=== PATIENT | female | born 1955 | race African-American/Black ===

== ENCOUNTER → 2017-02-24 | Outpatient (CLI) | payer BC ==
[~2017-02-24] MED LIST: CHLORDIAZEPOXI1 EACH PO; INDERAL40 MG PO; LANTUS100 U/ML SUBQ; LEVOTHYROXINE100 MCG PO; LORAZEPAM1 MG PO; LORTAB 7.5-5001 TAB; NORVASC PO; PHENERGAN25 M1; VITAMIN D31000 UNIT PO
--- NOTE | ~2017-02-24 | ST ---
Unit #: [id number] #: [id number] Patient: LANA CAREY [id number] [address] [id number] MR#: [id number] NAME: LANA CAREY. : 1955 SEX: F STUDY DATE/TIME: 02/24/2017 UNIT: [facility] ROOM: STUDY DESCRIPTION: ECG portion of nuclear stress Attending Physician: Mir Fuentes M.D. Referring Physician: Mir Fuentes M.D. Primary Care Physician: Katia Frank CARDIOLOGY REPORT PROCEDURE PERFORMED ECG portion of nuclear stress test. INDICATION Chest discomfort. NOTE: Dictating both ECG portion of the nuclear stress test and the nuclear portion of the stress test in the same dictation. ECG PORTION Patient underwent Lexiscan protocol. The patient's resting heart rate is 71 beats per minute, which increased to 86 beats a minute representing 53% of the maximum age-predicted heart rate. Patient's resting blood pressure was 130/80 mmHg, which increased to 161/88 mmHg with Lexiscan infusion. Patient's resting ECG showed normal sinus rhythm with normal ST segments. Patient's ECG during Lexiscan infusion remains to be in sinus rhythm with preserved ST segments. There is no ventricular or supraventricular ectopy noted. There is no pause noted. CONCLUSION 1. Negative ECG portion of the Lexiscan study for ischemia. 2. Perfusion imaging dictated below. PERFUSION IMAGING Patient underwent nuclear stress test, received a resting dose of 9.7 mCi and a stress dose of 30.5 mCi. On gated imaging patient appears to have normal wall motion with a preserved ejection fraction. Patient's LVEF is 75%. On perfusion imaging, comparing rest and stress imaging, there appears to be no reversible perfusion defects. CONCLUSIONS 1. No obvious ischemia. 2. Preserved ejection fraction. 3. ECG portion dictated above. Dictated by... Shazia Allen M.D. Unit #: [id number] #: [id number] Patient: LANA CAREY [place]/db TD: 02/24/2017 20:31 JOB #: [id number] CARDIOLOGY REPORT Page 1 of 1 X SHAZIA ALLEN MD CARDIOLOGY REPORT
== END | disposition home or self-care (01) ==
LOC: CNUC 02-21 07:00
DX: R07.89 Other chest pain (principal); I36.1 Nonrheumatic tricuspid (valve) insufficiency; I27.2 Other secondary pulmonary hypertension
CPT/HCPCS: 78452; 93017; 93306; A9500; J2785